=== PATIENT | male | born 1960 | race Caucasian/White ===

== ENCOUNTER → 2016-12-08 | Outpatient (CLI) | payer OTHER ==
[~2016-12-08] MED LIST: ATOR-26 PO; LISI20TA55 PO
[2016-12-08 13:24] LABS: ESTIMATED AVERAGE GLUCOSE 103 mg/dl; HA1C FLAG Normal (Normal)
== END | disposition home or self-care (01) ==
LOC: C.LABBFT 07:47
PROVIDERS: ATTEND Internal Medicine
DX: R73.01 Impaired fasting glucose (principal)

== ENCOUNTER 2017-12-11 07:04 | Emergency (ER) | payer OTHER ==
[~2017-12-11] VITALS: Ht 167.6 cm; Wt 77.8 kg
[2017-12-11 07:11] VITALS: TEMP 36.7; Ht 167.6 cm; Wt 77.8 kg
[2017-12-11] MEDS ORDERED: PROPARACAINE HCL 0.5% OP SOLN 15 ML BTL OP STA (07:21)
--- NOTE | 2017-12-11 08:10 | EMERGENCY ROOM VISIT NOTE ---
History First contact with patient: 07:18 Chief Complaint: EYE ASSESSMENT Stated Complaint: RIGHT EYE, SOMETHING IN IT/WC History of Present Illness The patient is a 57 year old male who presents to the Emergency Room via private vehicle with complaints of "right eye, something in it". The patient states that yesterday while working at his place of employment there was an exhaust system he was working on that was above his head. He believes that something may have gone into his right eye because he notes that there was a jagged sensation and now when he woke up it is much worse. It is localized to the right eye. His tetanus is up-to-date. He believes that this occurred yesterday around 10 AM. He states that he has had a history of foreign body/ metal in the eye before. Review of Systems A complete 6-point Review of Systems was discussed with the patient, with pertinent positives and negatives listed in the History of Present Illness. All remaining Review of Systems questions can be considered negative unless otherwise specified. Past Medical/Surgical History Medical Problems: (1) Hyperlipidemia (2) Hypertension Social History Smoking Status: Former Smoker Occupation Status: employed Current/Historical Medications Scheduled Atorvastatin (Lipitor), 80 MG PO QPM Lisinopril/Hctz (Prinzide 20-25MG), 1 TAB PO DAILY Physical Exam Vital Signs Date Time Temp Pulse Resp B/P (MAP) Pulse Ox O2 Delivery O2 Flow Rate FiO2 12/11/17 08:40 72 18 141/87 97 Room Air 12/11/17 07:11 36.7 79 18 151/75 95 Room Air Right Eye Acuity: 20/70 PT DOES NOT USE CORRECTION Left Eye Acuity: PT. STATED HE COULD NOT SEE EYE CHART, "EVERYTHING IS BLURRY" Physical Exam VITAL SIGNS - Vital signs and nursing notes were reviewed. Stable. GENERAL - 57-year-old male appearing his stated age who is in no acute distress. Communicates well with provider and answers questions appropriately. SKIN - Without rashes. No meningeal or petechial rash. The skin around the right eye is unremarkable. HEAD - NC/AT. EYES - PERRL with EOMI bilaterally. Sclera anicteric. On visual exam there is evidence of a small punctate black metallic-like jocelyne at the medial aspect of the patient's right cornea between the limbus and the central portion of the iris. EARS - No deformities of external structures noted on gross examination bilaterally. NOSE - Midline and without cyanosis. No epistaxis or purulent drainage noted. Slit Lamp Examination was performed of the R eye(s). Alcaine drops were applied to the affected eye(s) for proper anesthetization. The affected eye(s) were stained with Fluorescein stain to precipitate adequate visualization of any conjunctival/scleral excoriations or ulcers. The patient's face was comfortably rested on the chin guard of the slit lamp apparatus. The lights were dimmed and the affected eye(s) were thoroughly examined under microscopy using the blue light. Punctate uptake was present at the right medial portion of the eye with evidence of superficial abrasion as well as a small punctate area with the metallic area was prior to removal. Additionally, the eye(s) were examined under microscopy using the regular light. Close examination revealed negative Yonatan sign with small rust ring. Patient tolerated the procedure well and no complications were met. Medical Decision & Procedures Medications Administered Medications (Trade) Dose Ordered Sig/Miladis Route Start Time Stop Time Status Last Admin Dose Admin Proparacaine HCl (Alcaine 0.5% Oph Soln) 2 drops NOW STAT OP 12/11/17 07:21 12/11/17 07:22 DC 12/11/17 07:43 2 DROPS Ciprofloxacin HCl (Ciprofloxacin 0.3% Op Soln) 1 drops NOW STAT OPR 12/11/17 08:24 12/11/17 08:25 DC 12/11/17 08:48 1 DROPS Procedure Benefit versus risk of removing foreign body from the patient's eye was discussed. Patient was positioned, Alcaine was utilized to anesthetize the eye , and then I utilized a moistened sterile cotton swab to gently remove the metal foreign body. Care was taken so as to not cause further damage. Patient tolerated this well. Removal was verified with slit-lamp exam. There is perhaps a small, extremely tiny small jocelyne it remains however this is favored to be continuance of the rust ring. There are small superficial corneal abrasions noted around this region. Medical Decision /Patient was seen and evaluated as above B3. Review was performed of nursing notes and vital signs. After obtaining a thorough history and physical examination the above work up was performed. He presents to us today with right eye pain. There is visible foreign body on exam. Negative Yonatan sign. Benefit versus risk of removing this was discussed. This was removed easily with a cotton swab that was moistened with Alcaine. There was a rust ring. I then spoke with Dr. Lindsey, of ophthalmology who will see the patient at 2:30 PM later today. He will be discharged home with Ciloxan. He is to return with worsening. He declined pain medication. The patient was educated upon management, had questions answered prior to discharge, and was discharged home in good condition. In the evaluation and treatment of this patient, the following differential diagnoses were considered: Corneal Abrasion, Conjunctivitis, Eye Contusion, Globe Injury, Orbital Floor Injury (Blowout Fracture), Corneal Ulcer, Keratitis , Herpes Zoster Opthalmic, Blepharitis, Orbital Cellulitis, Iritis, Scleritis/ Episcleritis, Uveitis, Temporal Arteritis, Subconjunctival Hemorrhage. Impression Primary Impression: Eye foreign body Departure Information Dispostion Home / Self-Care Condition GOOD Referrals Alberto Ferguson M.D. (PCP) Skyler Leblanc M.D. Patient Instructions My [facility] Additional Instructions You have been treated in the Emergency Department for R eye pain. You were prescribed ciloxan to be used every 6 hours. This is an antibiotic. Stop this medication and contact a medical provider if you were to develop any significant adverse side effects including: wheezing, shortness of breath, passing out, vomiting, or a diffuse rash. Always take antibiotics as directed and COMPLETE the ENTIRE course regardless of the improvement of your symptoms. For pain control, you can use the following henu-yrn-eywvfha medicines: - Regular strength (325mg/tab) Tylenol (acetaminophen) 2 tabs every 4-6 hours as needed. Do not exceed 12 tablets in a 24 hour period. Avoid taking more than 3 grams (3000 mg) of Tylenol per day. This includes any other sources of acetaminophen you may take on a regular basis. - Regular strength (200 mg/tab) Advil (ibuprofen) 1-2 tabs every 4-6 hours as needed. Do not exceed a dose of 3200 mg per day. Avoid rubbing your eyes for the next few days as this can cause irritation. Wear sunglasses when outside to help minimize your pain. You should relax in a quiet, dark room to help minimize your symptoms. You should seek evaluation of your right eye by an after school caregiver following your visit to the Emergency Department. They will see you at 2:30 PM today. This is at the office listed above. Return to the emergency department if you develop the following symptoms despite treatment course outlined above: blurry vision, loss of vision, fever, intractable pain, increased redness, swelling, or purulent discharge. Problem Qualifiers Primary Impression: Eye foreign body Laterality: right
[2017-12-11] MEDS ORDERED: CIPROFLOXACIN HCL 0.3% OP SOLN 2.5 ML BTL OPR STA (08:24)
[2017-12-11 08:40] VITALS: BP 141/87; PULSE 72; O2SAT 97
== END 2017-12-11 08:49 | disposition home or self-care (01) ==
LOC: C.EDB 07:06
DX: T15.01XA Foreign body in cornea, right eye, initial encounter (principal); X58.XXXA Exposure to other specified factors, initial encounter; Y92.89 Other specified places as the place of occurrence of the external cause; Y99.0 Civilian activity done for income or pay; I10 Essential (primary) hypertension; E78.5 Hyperlipidemia, unspecified; Z79.899 Other long term (current) drug therapy; Z87.891 Personal history of nicotine dependence

== ENCOUNTER 2023-10-02 09:29 | Inpatient (IN) ==
--- NOTE | 2023-10-02 10:07 | Emergency Department Note ---
History of Present Illness General Chief complaint: Illness Stated complaint: VOMIING, DIARRHEA, CHEST PAINS, FALLING Time Seen by Provider: 10/02/23 09:50 History of Present Illness 63-year-old male presents emergency department with a 3-day history of nausea vomiting diarrhea and generalized weakness. Patient of note was seen by his primary care physician yesterday for hip pain. She did perform a nasal swab in the office and reportedly was negative for COVID and flu. Patient states that he had chest pain earlier today. Nonradiating there is no shortness of breath. Patient states anytime he tries to eat or drink he has diarrhea. Nonbloody. Patient states generalized weakness currently. Patient denies any specific abdominal pain. Family at bedside states that he is extremely weak. Patient states he has not urinated as he has not been producing urine for the past 3 days. Patient also states that he was prescribed Zofran which seems to be helping.; According to family at bedside reportedly had 2 episodes of falling last night did not hit his head but fell due to weakness Home Medications Medication Instructions Recorded Confirmed Type atorvastatin 80 mg tablet 80 mg PO HS #90 tabs 06/12/23 10/02/23 Rx lisinopril 20 1 tab PO BID #180 tabs 06/12/23 10/02/23 Rx mg-hydrochlorothiazide 25 mg tablet ondansetron HCl 8 mg tablet 8 mg PO Q8H PRN nausea and 10/01/23 10/02/23 Rx vomiting #20 tabs Allergies Allergy/AdvReac Type Severity Reaction Status Date / Time No Known Allergies Allergy Verified 10/01/23 06:55 Past Med/Surg History Medical History [place] (hard of hearing) Hyperlipidemia HTN (hypertension) Surgical History (Updated 06/12/23 @ 21:21 by Alberto Ferguson MD) Hx of arthroscopy of right knee History of colonoscopy History of umbilical hernia repair History of knee surgery History of inguinal hernia repair Rx1, Lx1 Family History (Updated 06/12/23 @ 11:55 by Alberto Ferguson MD) Father Hypertension Prostate cancer Mother Heart disease Brother Healthy adult Other Colonic polyp Denies family history of Breast cancer Social History Smoking Status: Never smoker Tobacco Type: Smokeless Tobacco (Dip or Chew) packs per day: 1; Second Hand Exposure: No; Do You Dip or Chew Tobacco: Yes (1 can per day/advised npo); Hx Alcohol Use: Yes Alcohol type: beer Alcohol type Comment: December 2 8 oz beers per day. Hx Substance Use: No Preferred Language: Belarusian Communication Ability: Effective Hearing Ability: Hard of Hearing Beauty Advisor Required: No Beliefs That Will Affect Care: None marital status: Single Current Living Situation: Alone current occupational status: employed current occupation: [employer] (not a family business) Feels Safe at Home: Yes Dental Care, Regularly: Yes Physical Activity Frequency: Does not Exercise Seatbelt Use: always Sunscreen Use: No Assistive Devices: None Review of Systems A total of 10 systems reviewed and were otherwise negative Constitutional: + weakness Gastrointestinal: + diarrhea/loose stools Physical Exam Vital Signs Vital Signs - 24 hr 10/02/23 09:40 10/02/23 09:55 10/02/23 09:57 Temperature 35.5 C L Temperature Source Temporal Artery Scan Pulse Rate 101 H 77 Pulse Rate [Apical] 74 Pulse Rhythm [Apical] Regular Pulse Strength [Apical] Normal Respiratory Rate 16 16 Respiratory Effort / Characteristics Non-Labored Spontaneous Non-Labored Respiratory Depth Normal Normal Respiratory Pattern Regular Blood Pressure 70/41 L Blood Pressure [Left Arm] 73/45 L Blood Pressure Mean 50 Blood Pressure Mean [Left Arm] 54 Blood Pressure Position [Left Arm] Sitting Pulse Oximetry 96 Oxygen Delivery Method Room Air Sepsis Recent Fever Within 48 Hours No Sepsis New/Unexplained Change in Mental Status Yes Sepsis Action Taken by Nursing No Action Required 10/02/23 10:09 10/02/23 10:15 10/02/23 11:15 Temperature Temperature Source Pulse Rate Pulse Rate [Apical] 72 70 78 Pulse Rhythm [Apical] Regular Regular Regular Pulse Strength [Apical] Normal Normal Respiratory Rate 18 18 18 Respiratory Effort / Characteristics Non-Labored Spontaneous Non-Labored Non-Labored Spontaneous Respiratory Depth Normal Normal Normal Respiratory Pattern Regular Regular Blood Pressure Blood Pressure [Left Arm] 78/50 L 81/51 L 137/80 Blood Pressure Mean Blood Pressure Mean [Left Arm] 59 61 99 Blood Pressure Position [Left Arm] Semi-fowlers Sitting Pulse Oximetry 95 96 95 Oxygen Delivery Method Room Air Room Air Room Air Sepsis Recent Fever Within 48 Hours Sepsis New/Unexplained Change in Mental Status Sepsis Action Taken by Nursing GENERAL: Patient is awake alert in no acute distress patient is resting comfortably and showing no signs of anxiety EYES: The conjunctivae are clear. The pupils are round and reactive. EARS, NOSE, MOUTH AND THROAT: The nose is without any evidence of any deformity. Mucous membranes are moist. Tongue is midline. NECK: The neck is nontender and supple. No meningismus RESPIRATORY: Normal respiratory effort is noted there is no evidence of wheezing rhonchi or rales CARDIOVASCULAR: Regular rate and rhythm noted there no murmurs rubs or gallops normal S1 normal S2. GASTROINTESTINAL: The abdomen is soft. Abdomen is nontender. PELVIS: The Pelvis is stable. No tenderness to palpation is noted. BACK: No midline tenderness or or step-off noted range of motion in flexion extension as well as rotation no signs of muscle spasm noted MUSCULOSKELETAL/EXTREMITIES: There is no evidence of gross deformity full range of motion is noted in the hips and shoulders. SKIN: There is no obvious evidence of any rash. There are no petechiae, pallor or cyanosis noted. NEUROLOGIC: Patient is awake alert and oriented x3 strength is symmetric Course Reevaluation(s) Reevaluation #1: Patient was started on 2 L of IV saline, his blood pressure is greater than 100 systolic. Time: 11:36 Consultations Consultation #1: [facility], he will also get a CT abdomen pelvis Time: 11:36 Administered Medications Sodium Chloride (Nss) 1,000 mls @ 999 mls/hr IV .Q1H1M KATELYN Stop: 10/02/23 12:00 Last Admin: 10/02/23 11:16 Dose: 999 mls/hr Documented By: Infusion: 10/02/23 11:12 Dose: Infused Documented By: Admin: 10/02/23 10:11 Dose: 999 mls/hr Documented By: [facility] Critical Care Time Critical Care Time: Yes Total Critical Care Time: 45 I have personally spent greater than 45 minutes of critical care time in the direct management of this patient. This includes bedside care, interpretation of diagnostic studies, and testing, discussion with consultants, patient, and family members, and other required patient management activities. These minutes are in excess of all separately billable procedures. Medical Decision Making Medical Records Attestation: I reviewed the patient's medical records. Home Medications Current Medication List: was personally reviewed by me Laboratory Data Attestation: I reviewed the patient's lab results. Patient's lab work interpreted by me patient has a mild leukocytosis, patient has an elevated creatinine in comparison to a baseline of 0.5 in the past which is indicative of acute renal failure 10/02/23 10:03 10/02/23 10:03 Lab Results 10/02/23 10/02/23 Range/Units 10:01 10:03 WBC 11.14 H (4.8-10.8) K/ul RBC 5.09 (4.70-6.10) M/uL Hgb 15.1 (14.0-18.0) g/dl Hct 43.6 (42.0-52.0) % MCV 85.7 (80.0-100.0) fL MCH 29.7 (25.0-34.0) pg MCHC 34.6 (32.0-36.0) g/dL RDW Std Deviation 42.7 (36.4-46.3) fL RDW Coeff of Elena 13.6 (11.5-14.5) % Plt Count 329 (130-400) K/uL MPV 8.4 L (9.4-12.4) fL Immature Gran % (Auto) 0.5 % Neut % (Auto) 77.8 % Lymph % (Auto) 10.3 % [place] % (Auto) 11.0 % Eos % (Auto) 0.1 % Baso % (Auto) 0.3 % Neut # (Auto) 8.67 H (1.40-6.50) K/uL Lymph # (Auto) 1.15 L (1.20-3.40) K/uL [place] # (Auto) 1.22 H (0.11-0.59) K/uL Eos # (Auto) 0.01 (0.00-0.50) K/uL Baso # (Auto) 0.03 (0.00-0.20) K/uL Immature Gran # (Auto) 0.06 (0.01-0.20) K/uL PT 10.1 (9.0-12.0) Seconds INR 0.9 (0.9-1.1) APTT 28 (21-31) Seconds PTT Ratio 1.0 Sodium 127 L (136-145) mmol/L Potassium 4.6 (3.5-5.1) mmol/L Chloride 89 L (98-107) mmol/L Carbon Dioxide 12 L (21-32) mmol/L Anion Gap 26 H (3-11) BUN 99 H (6-23) mg/dl Creatinine 8.86 H* (0.6-1.4) mg/dl Est Cr Clr Drug Dosing 8.0 ml/min Est GFR ( Amer) 6.5 ml/min Est GFR (Non-Af Amer) 5.6 ml/min BUN/Creatinine Ratio 11.2 (10-20) Glucose 134 H (70-99(Fasting)) mg/dl Lactate 1.5 (0.4-2.0) mmol/L Calcium 8.5 L (8.6-10.3) mg/dl Magnesium 2.5 H (1.7-2.4) mg/dl Total Bilirubin 0.6 (0.2-1.0) mg/dl Direct Bilirubin 0.1 (0-0.2) mg/dl AST 16 (13-39) U/L ALT 29 (7-52) U/L Alkaline Phosphatase 83 (34-104) U/L Troponin I High Sens 7.1 (0-20) pg/ml Total Protein 8.1 (6.0-8.3) gm/dl Albumin 4.5 (3.4-5.0) gm/dl Procalcitonin 1.93 H (0-0.5) ng/ml SARS-CoV-2 (PCR) NEGATIVE (Negative) Influenza Type A (PCR) Negative (Neg) Influenza Type B (PCR) Negative (Neg) RSV (RT-PCR) Negative (Neg) Imaging Data Attestation: I personally reviewed and interpreted this imaging study as follows: My Impression: Chest x-ray interpreted by me negative for infiltrate Radiologist's Impression: Chest X-Ray 10/02/23 09:50 XR chest 1V portable HISTORY: 63 years-old Male Sepsis acute sepsis COMPARISON: None TECHNIQUE: AP view of the chest FINDINGS: Cardiac mediastinal and hilar silhouettes are within normal limits. No pneumothorax, pleural effusion or airspace consolidation. Bones appear grossly intact. IMPRESSION: No acute process. ACT 112: Negative or not required by law. The above report was generated using voice recognition software. It may contain grammatical, syntax or spelling errors. Electronically signed by: Wyatt Landin M.D. 10/02/2023 10:30 AM ECG Data Attestation: I personally reviewed and interpreted this ECG as follows: Additional Comments: EKG interpreted by me normal sinus rhythm rate of 74, normal intervals, normal axis, no obvious ST segment elevation or depression Telemetry was interpreted by me as normal sinus rhythm rate of 74 MDM Narrative Medical decision making differential diagnosis includes sepsis, urinary tract infection, dehydration, electrolyte abnormality, viral syndrome Plan is to check labs, patient will receive a 2 L fluid bolus, check sepsis protocol Family at bedside is provided me history regarding the patient has a history of hypertension, hard of hearing and the fact that he has never had a septic event Patient was found to have acute renal failure with a creatinine that was over 8 with a normal baseline creatinine 1.5. Patient is on lisinopril, patient has had diarrhea however has not given us a sample in the emergency department. Patient is likely extremely dehydrated, a Schwartz catheter was placed. Patient has no urine output. Patient is an uric. Patient will be admitted for further treatment patient responded nicely to 2 L of saline. Currently and antibiotics have been held and might be chosen by the admitting team. Patient's procalcitonin is up. The source of potential infection is unknown at this time. Patient did improve greatly after IV fluids and his blood pressure at the time of admission was 136 systolic. Impression & Plan Acute renal failure, Acute dehydration, Diarrhea Discharge Plan Visit Data Chief Complaint: Illness Stated Complaint: VOMIING, DIARRHEA, CHEST PAINS, FALLING ED Provider: Torito Flowers Discharge Problem: Acute renal failure, Acute dehydration, Diarrhea Patient Disposition: Admitted As Inpatient Forms Stand Alone Forms: My [employer] Prescriptions Prescriptions: No Action atorvastatin 80 mg tablet 80 mg PO HS Qty: 90 3RF lisinopril-hydrochlorothiazide 20-25 mg tablet 1 tab PO BID Qty: 180 3RF Rx Instructions: TAKE 1 TABLET BY MOUTH TWICE DAILY ondansetron HCl 8 mg tablet 8 mg PO Q8H PRN (Reason: nausea and vomiting) Qty: 20 0RF Referrals Referrals: Alberto Ferguson MD [Primary Care Provider] -
[2023-10-02] MEDS: SODIUM CHLORIDE 0.9% 1,000 ML IV SCH (10:11)
[2023-10-02 10:30] LABS: Basophils # (auto) 0.03 K/uL (0.00-0.20); Basophils % (auto) 0.3 %; Eosinophils # (auto) 0.01 K/uL (0.00-0.50); Eosinophils % (auto) 0.1 %; Hematocrit (blood only) 43.6 % (42.0-52.0); Hemoglobin 15.1 g/dl (14.0-18.0); Immature Granulocytes # (auto) 0.06 K/uL (0.01-0.20); Immature Granulocytes % (auto) 0.5 %; Lymphocytes # (auto) 1.15 K/uL (1.20-3.40); Lymphocytes % (auto) 10.3 %; Mean Corpuscular Hemoglobin 29.7 pg (25.0-34.0); Mean Corpuscular Hgb Conc 34.6 g/dL (32.0-36.0); Mean Corpuscular Volume 85.7 fL (80.0-100.0); Mean Platelet Volume 8.4 fL (9.4-12.4); Monocytes # (auto) 1.22 K/uL (0.11-0.59); Neutrophils # (auto) 8.67 K/uL (1.40-6.50); Neutrophils % (auto) 77.8 %; Platelet Count 329 K/uL (130-400); RDW Coefficient of Variation 13.6 % (11.5-14.5); RDW Standard Deviation 42.7 fL (36.4-46.3); Red Blood Count 5.09 M/uL (4.70-6.10); White Blood Count 11.14 K/ul (4.8-10.8)
--- NOTE | 2023-10-02 10:31 | XRay Report ---
XR chest 1V portable HISTORY: 63 years-old Male Sepsis acute sepsis COMPARISON: None TECHNIQUE: AP view of the chest FINDINGS: Cardiac mediastinal and hilar silhouettes are within normal limits. No pneumothorax, pleural effusion or airspace consolidation. Bones appear grossly intact. IMPRESSION: No acute process. ACT 112: Negative or not required by law. The above report was generated using voice recognition software. It may contain grammatical, syntax o r spelling errors. Electronically signed by: Wyatt Landin M.D. 10/02/2023 10:30 AM
[2023-10-02 10:51] LABS: INR 0.9 (0.9-1.1); Partial Thromboplastin Time 28 Seconds (21-31); Prothrombin Time 10.1 Seconds (9.0-12.0)
[2023-10-02 10:53] LABS: Albumin Level 4.5 gm/dl (3.4-5.0); BUN Creatinine Ratio 11.2 (10-20); Bilirubin Direct 0.1 mg/dl (0-0.2); Bilirubin,Total 0.6 mg/dl (0.2-1.0); Calcium 8.5 mg/dl (8.6-10.3); Est GFR (African American) 6.5 ml/min; Est GFR (Non-African American) 5.6 ml/min; Magnesium 2.5 mg/dl (1.7-2.4); Potassium 4.6 mmol/L (3.5-5.1); Total Protein 8.1 gm/dl (6.0-8.3); Troponin I High Sensitivity 7.1 pg/ml (0-20)
[2023-10-02 10:58] LABS: Influenza A virus by PCR Negative (Neg); Influenza B virus by PCR Negative (Neg); RSV by PCR Negative (Neg); SARS CoV2 RNA(COVID-19) Ceph NEGATIVE (Negative)
--- NOTE | 2023-10-02 11:04 | Electrocardiogram Report ---
Test Reason : Blood Pressure : / mmHG Vent. Rate : 074 BPM Atrial Rate : 074 BPM P-R Int : 160 ms QRS Dur : 096 ms QT Int : 384 ms P-R-T Axes : 076 074 062 degrees QTc Int : 426 ms Normal sinus rhythm Normal ECG When compared with ECG of 21-MAY-2015 07:15, No significant change was found Confirmed by Erick Moody ([id number]) on 10/02/2023 11:04:40 AM Referred By: REFERRED SELF Confirmed By:Erick Moody
--- NOTE | 2023-10-02 11:49 | History & Physical Report ---
Date of Service October 02, 2023 Assessment & Plan (1) Acute renal failure: Plan: -Admit to the PCU on tele -Currently hemodynamically stable and non-toxic appearing -Presented to the ED for ongoing nausea, vomiting, and non-bloody diarrhea since 09/28/23 -Patient reports that he has not voided since 09/28, denied having the urge to go or increased suprapubic pain since 09/28 -Noted to have a Cr of 8.86 (baseline is 0.6) and BUN of 99 -CT of the abd/pelvis wo con ordered prior to admission is negative for signs of obstruction, does note Mild bilateral perinephric edema/fat stranding which could represent pyelonephritis -Repeat BMP, mag, phos on admission show a slight improvement of Cr to 8.0, BUN of 97, sodium of 128, AG of 20, Bicarb of 10 -Will obtain UA shortly with urine sodium and osmolality -Suspect his elevated phos is due to volume contraction on arrival, will wait to treat while continuing IV fluids and will follow on repeat q4h labs -Suspect his renal failure is due to multiple etiologies including severe dehydration from gastroenteritis and continued Lisinopril-HCTZ use -Cannot rule out intrinsic etiology with continued lisinopril-HCTZ use and possible infection, UA is in process -Continue with hughes cath in place for now, monitor intake/output q6h -Will start maintenance Plasmalyte at 100 mL/hr x 2 bags for now and will follow up with urine output q6h -Nephrology consult placed -Avoid Nephrotoxic agents -Hold chemical DVT PPX for now, BL SCD's -Clear liquid diet -q4h BMP, mag, phos, VBG -AM CBC with diff (2) High anion gap metabolic acidosis: Plan: -Patient presented with an AG of 36, bicarb of 12 -Lactate was WNL at 1.5 -ABG ordered on admission shows a pH of 7.23 with pCO2 of 24 and pO2 of 121 which shows incomplete respiratory compensation -Alcohol level is negative, salicylate level in process, patient denies taking any recent aspirin, NSAID's, or non-pharmacologic substances at home -Repeat BMP, mag, phos, shows slight improvement in renal function with AG improving to 20 but bicarb down to 10 -Suspect the metabolic acidosis with incomplete respiratory compensation is being driven by his severe dehydration and uremia >Suspect the drop in his bicarb from 12 --> 10 is likely due to the 2L NSS given in the ED -He is clinically stable at this time -Will start Plasmalyte at 100 mL/hr x 2 bags on admission for ongoing hydration -Will monitor q4h VBG to ensure he continues to correct (3) Acute dehydration: Plan: -Patient appears significantly dehydrated on exam with labs consistent with his presentation -Suspect this is due to his gastroenteritis with continued use of his linopril- HCTZ -Continue IV hydration for now, will start clear liquid diet -Monitor volume status moving forward (4) Hyponatremia: Plan: -Initial sodium of 127 on arrival --> 128 after receiving 2L NSS in the ED -Suspect that his hyponatremia is being causing by significant dehydration and continued diuretic use -Will continue IV hydration at this time -Will obtain serum osmolality, urine sodium, urine osmolality for further evaluation -Monitor q4h BMP, mag, phos -Nephrology consult placed (5) Diarrhea: Plan: -Suspect a gastroenteritis at this time, cannot rule out C. diff with the ongoing episodes of diarrhea -Denies recent abx use -CT of the abd/pelvis wo con is negative for obstruction with signs consistent with possible gastroenteritis -Will obtain stool studies and C. diff PCR but will hold abx for now as he has a mild leukocytosis on arrival and has been stable since initial fluid resuscitation in the ED -Will hold antidiarrheals for now until stool study results are back (6) Nausea and vomiting: Plan: -Suspect this is due to his gastroenteritis and possible gastritis/esophagitis -CT of the abd/pelvis wo con is negative for obstruction -Will give 20 mg IV famotidine now and continue daily until he can tolerate consistent PO Intake -Will order prn zofran for nausea/vomiting (7) Hypertension: Plan: -Presented in hypotension with systolic BP in the 70's -Has been stable since fluid resuscitation in the ED -Hold antihypertensives with stable BP and current renal failure Plan The patient was discussed with Dr. Watkins at the time of the admission History of Present Illness Chief Complaint: Vomiting, diarrhea, chest pain, falls Primary Care Provider: Alberto Ferguson MD Rogelio is a 63 year old male with a PMH significant for HTN, hyperlipidemia who presented to the [facility] ED on 10/02/23 with complaints of recurrent nausea, vomiting, diarrhea, chest discomfort, and multiple falls since 09/28/83. On arrival he was noted to be hypotensive at 70/41, tachycardic with HR of 101, but otherwise stable. Labs were significant for a leukocytosis of 11 with neutrophil predominance of 8, lymphocyte count of 1.15, Cr of 8.86 (baseline is near 0.60), BUN of 99, AG of 26 with bicarb of 12, chloride of 89, sodium of 127, mag of 2.5, lactate WNL, procal of 1.93, and covid 19/influenza/RSV negative. Chest xray was read as negative for acute findings. The patient was initially given 2L NSS bolus on arrival with improvement in his BP to 137/80. Prior to admission a hughes catheter was placed in the ED. A CT of the abd/pelvis wo con was obtained by the medicine team prior to admission and was read as "1. No bowel wall thickening or obstruction. 2. Fluid-filled nondilated loops of large and small bowel seen throughout the abdomen. This may represent a gastroenteritis/diarrhea l illness. 3. Right-sided nephrolithiasis. No ureteral stones. No hydronephrosis. 4. Mild bilateral perinephric edema/fat stranding most pronounced on the left. The kidneys appear slightly enlarged. This could be due to acute on chronic renal insufficiency or possibly a pyelonephritis. Recommend correlation with urinalysis.5. Additional findings as described above. ". At the time of the exam the patient was sitting in bed in no acute distress with his daughter sitting bedside. He states that he started to develop nausea, non-bloody emesis, and multiple (more than 4 daily) episodes of non-bloody diarrhea starting on 09/28/23. When asked, he confirms that he continued to take his daily medications which includes lisinopril-HCTZ. He was seen at his PCP's office on 10/01 and was prescribed prn Zofran, which he has been using. He states that he has not voided on his own since 09/28/23, he denies feeling as though he has had to void since his decreased urine output started. He experienced two ep isodes of lightheadedness/dizziness since last night. These occurred while he was walking to his kitchen to get zofran. He denies losing consciousness or hitting his head during the falls and states that he has not had recurrence of the symptoms since arriving to the ED. He has had approximately 3 episodes of intermittent episodes of substernal chest pain. He denies radiation of the pain and denies recurrence of the pain since arrival to the ED. When asked, he denies taking any aspirin, Aleve, Motrin, Ibuprofen, tylneol, alcohol, or other substances prior to or since his symptoms started. He denies recent antibiotic use. He denies recent fever, chills, cough, hemoptysis, hematochezia, abd pain, dysuria, hematuria, melena, bloody stool, LE swelling. We discussed code status, he wishes to be a full code and would want his daughter to make medical decisions for him if he cannot make them himself. Please refer to Dr. Watkins's attestation for any changes to the treatment plan Allergies Allergy/AdvReac Type Severity Reaction Status Date / Time No Known Allergies Allergy Verified 10/01/23 06:55 Home Medications Medication Instructions Recorded Confirmed Type atorvastatin 80 mg tablet 80 mg PO HS #90 tabs 06/12/23 10/02/23 Rx lisinopril 20 1 tab PO BID #180 tabs 06/12/23 10/02/23 Rx mg-hydrochlorothiazide 25 mg tablet ondansetron HCl 8 mg tablet 8 mg PO Q8H PRN nausea and 10/01/23 10/02/23 Rx vomiting #20 tabs Past Med/Surg History Medical History [place] (hard of hearing) Hyperlipidemia HTN (hypertension) Surgical History (Updated 06/12/23 @ 21:21 by Alberto Ferguson MD) Hx of arthroscopy of right knee History of colonoscopy History of umbilical hernia repair History of knee surgery History of inguinal hernia repair Rx1, Lx1 Family History (Updated 06/12/23 @ 11:55 by Alberto Ferguson MD) Father Hypertension Prostate cancer Mother Heart disease Brother Healthy adult Other Colonic polyp Denies family history of Breast cancer Social History Smoking Status: Never smoker Tobacco Type: Smokeless Tobacco (Dip or Chew) packs per day: 1; Second Hand Exposure: No; Do You Dip or Chew Tobacco: Yes (1 can per day/advised npo); Hx Alcohol Use: Yes Alcohol type: beer Alcohol type Comment: December 2 8 oz beers per day. Hx Substance Use: No Preferred Language: Urdu Communication Ability: Effective Hearing Ability: Hard of Hearing Cash Applications Clerk Required: No Beliefs That Will Affect Care: None marital status: Single Current Living Situation: Alone current occupational status: employed current occupation: [employer] (not a family business) Feels Safe at Home: Yes Dental Care, Regularly: Yes Physical Activity Frequency: Does not Exercise Seatbelt Use: always Sunscreen Use: No Assistive Devices: None Physical Exam Physical Exam: Physical Exam: General: In no acute distress, stated age, well-nourished, non-toxic appearing HEENT: Normocephalic, atraumatic, no scleral icterus, pupils around round, symmetrical, and reactive to light, dry mucus membranes, trachea midline, no thyromegaly Chest/Pulm: No respiratory distress, symmetrical chest expansion, clear breath sounds throughout Cardiac: RRR, no murmurs noted Abdomen: Negative for ascites and bruising, hyperactive bowel sounds, soft, non-tender to palpation throughout : Hughes cath is in place, currently drainage approximately 100 cc of cloudy, yellow urine Musculoskeletal: Symmetrical and without signs of acute trauma, upper and lower extremities with full ROM, no atrophy, spasticity, or flaccidity Extremities: Radial, dorsalis pedis, and posterior tibial pulses are intact and symmetrical, no edema noted in the BL LE's Skin: Warm, dry, no rashes , lesions, or scars noted Neuro: Alert and oriented to person, place, month, year, and president, no focal defects, CN II-XII tested and intact, finger to nose test negative, no tremors noted Psych: No acute distress, calm and cooperative during the exam Results & Data Results & Data Vital Signs (Past 12 Hours) Vital Signs Temp Pulse Pulse Resp BP BP Pulse Ox 10/02/23 11:15 78 18 137/80 95 10/02/23 10:15 70 18 81/51 L 96 10/02/23 10:09 72 18 78/50 L 95 10/02/23 09:57 77 10/02/23 09:55 74 16 73/45 L 96 10/02/23 09:40 35.5 C L 101 H 16 70/41 L O2 Del Method 10/02/23 11:15 Room Air 10/02/23 10:15 Room Air 10/02/23 10:09 Room Air 10/02/23 09:57 10/02/23 09:55 Room Air 10/02/23 09:40 Laboratory Results Abnormal lab results 10/02/23 Range/Units 10:03 WBC 11.14 H (4.8-10.8) K/ul MPV 8.4 L (9.4-12.4) fL Neut # (Auto) 8.67 H (1.40-6.50) K/uL Lymph # (Auto) 1.15 L (1.20-3.40) K/uL Duval # (Auto) 1.22 H (0.11-0.59) K/uL Sodium 127 L (136-145) mmol/L Chloride 89 L (98-107) mmol/L Carbon Dioxide 12 L (21-32) mmol/L Anion Gap 26 H (3-11) BUN 99 H (6-23) mg/dl Creatinine 8.86 H* (0.6-1.4) mg/dl Glucose 134 H (70-99(Fasting)) mg/dl Calcium 8.5 L (8.6-10.3) mg/dl Magnesium 2.5 H (1.7-2.4) mg/dl Procalcitonin 1.93 H (0-0.5) ng/ml ECG Additional Comments: Normal sinus rhythm Normal ECG When compared with ECG of 21-MAY-2015 07:15, No significant change was found Confirmed by Erick Moody ([id number]) on 10/02/2023 11:04:40 AM Code Status & VTE Plan Code Status Full code VTE Prophylaxis Plan VTE Prophylaxis will be ordered: Yes Supervising Physician Co-Signing Physician Notes Patient seen and examined, chart reviewed, case discussed with Alexsander Downing PA-C and I agree with the assessment and plan as above except as otherwise noted Labs and images reviewed Rogelio is a 63-year-old male with history of BPH/LUTS, hypertension, hyperlipidemia who presents with a leukocytosis, metabolic acidosis, and acute renal failure with increased anion gap. BSG is 109. Hypotensive on arrival with rapid normalization of blood pressure after 2 L of crystalloid expansion with saline. Potassium is 4.3 and patient has been switched to balanced crystalloid resuscitation. CT-A/P: diarrheal/GI illness. ?renal insufficiency vs pyeleno. UA pending. PCT is increased. 2 episodes of presycnope without syncope/head injury which prompted ER arrive. Few intermittent episodes of chest discomfort none present on admit with normal trop and no ischemic EKG changes. ARF - Prerenal with severe volume depletion, improving. - No signs of obstructive uropathy - DDx includes infectious/pyelo, with ?pyelo vs chronic insufficiency however pt is not having sx of UTI. With poor appearance and leukocytosis will defer pending UA analysis, hwoever pt has no sx of a UTI and no CVA tenderness and no other infectious sx ?reaction and from hypotension. - diuretics/nephrotoxins held - Continue plasmalyte. BMP q4h, VGB a4h at this time. Ur/Se osmoles pending, no etoh use and etoh was negative. Avoid NSS due to worsening of acidemia. Bicarb not indicated at this time. - Nonanuric Diarrheal inllness - Stool PCR pending PG Care Time/CCT Total # of Minutes Spent Total Time Spent with Patient: Total time spent is greater than 50% in coordination of care (as documented) at patient's floor/unit and/or counseling patient: [place] [address] INT INP/OBS CARE 3/75MIN Patient Type Established History Comprehensive Exam Comprehensive Medical Decision Making High Complexity Diagnoses Acute renal failure N17.9 High anion gap metabolic acidosis E87.29 Acute dehydration E86.0 Hyponatremia E87.1 Diarrhea R19.7 Nausea and vomiting R11.2 Hypertension I10
[2023-10-02 12:12] LABS: Allen Test Pos (Pos)
[2023-10-02] MEDS ORDERED: FAMOTIDINE 200 MG/20 ML VIAL IV STA (12:12)
--- NOTE | 2023-10-02 12:12 | CT Scan Report ---
ABDOMEN AND PELVIS CT WITHOUT CONTRAST CT DOSE: 919.63 mGy.cm HISTORY: renal failure, diarrhea TECHNIQUE: Multiaxial CT images of the abdomen and pelvis were performed without contrast. A dose lo wering technique was utilized adhering to the principles of ALARA. COMPARISON STUDY: None. FINDINGS: There is a small fat-containing right-sided Bochdalek hernia. Otherwise, lung bases are jarrod ar. No acute fractures identified. The unenhanced liver, gallbladder, spleen, adrenal glands, and cummings creas unremarkable. Mild to moderate calcified plaque within the normal caliber abdominal aorta. No r etroperitoneal or pelvic lymphadenopathy. No pelvic free fluid. Bilateral perinephric edema/fat stran ding most pronounced on the left. There is a 4 mm stone within the right kidney. No ureteral stones. No hydronephrosis. There are small left peripelvic renal cysts. There are a few hypodense lesions wit hin the left kidney the largest measuring 1.7 cm. These are incompletely characterized on this noncon trast study but favor cysts. The kidneys appear mildly enlarged. There is a 4 cm lipoma within the le ft lateral abdominal wall musculature. Prior mesh repair of an umbilical hernia is noted. The bladder is completely decompressed by Schwartz catheter. The prostate gland is mildly enlarged. Suboptimal eval uation for bowel pathology due to the lack of intravenous and oral contrast. However, there is no def inite bowel wall thickening or obstruction. A few colonic diverticula. No evidence for acute divertic ulitis. Normal appendix. Fluid-filled nondilated loops of large and small bowel. This may represent a mild gastroenteritis/diarrheal illness. Evidence for prior mesh repair of a left inguinal hernia. IMPRESSION: 1. No bowel wall thickening or obstruction. 2. Fluid-filled nondilated loops of large and small bowel seen throughout the abdomen. This may repre sent a gastroenteritis/diarrheal illness. 3. Right-sided nephrolithiasis. No ureteral stones. No hydronephrosis. 4. Mild bilateral perinephric edema/fat stranding most pronounced on the left. The kidneys appear sli ghtly enlarged. This could be due to acute on chronic renal insufficiency or possibly a pyelonephriti s. Recommend correlation with urinalysis. 5. Additional findings as described above. ACT 112: Negative or not required by law. Electronically signed by: Zack Dasilva M.D. 10/02/2023 12:09 PM
[2023-10-02 12:31] LABS: Base Excess ABG -15.6 mEq/L (-9-1.8); HCO3 ABG 10 mmol/L (19-24); Oxygen Saturation ABG 98.7 % (90-95); PCO2 ABG 24 mmHg (35-46); PO2 ABG 121 mmHg (80-95); pH ABG 7.23 (7.35-7.45)
[2023-10-02] MEDS: FAMOTIDINE 20MG/5ML IV PUSH IV STA (12:32)
[2023-10-02 12:38] LABS: BUN Creatinine Ratio 12.1 (10-20); Calcium 7.1 mg/dl (8.6-10.3); Creatinine Clr Calc Pharmacy 8.9 ml/min; Est GFR (African American) 7.4 ml/min; Est GFR (Non-African American) 6.4 ml/min; Magnesium 2.2 mg/dl (1.7-2.4); Potassium 4.3 mmol/L (3.5-5.1)
[2023-10-02] MEDS: PLASMA-LYTE A 1,000 ML IV SCH (12:59)
[2023-10-02 13:03] LABS: Appearance Urine Cloudy (Clear); Bacteria Urine Automated Negative (Negative); Bilirubin Urine Negative (Negative); Blood Urine 3+ (Negative); Color Urine Yellow; Epithelial Cell Urine Auto >30 /lpf (0-5); Glucose Urine UA Negative (Negative); Ketones Urine Negative (Negative); Leukocyte Esterase Urine Negative (Negative); Nitrite Urine Negative (Negative); Protein Urine 2+ (Negative); RBC Urine Automated >30 /hpf (0-4); Specific Gravity Urine 1.009 (1.000-1.030); Urobilinogen Urine Negative (Negative)
[2023-10-02] MEDS ORDERED: ONDANSETRON INJ 2 MG/ML 2 ML VIAL IV PRN (13:18)
[2023-10-02 13:21] LABS: Cast Urine Automated 0 /lpf (0-5); Mucus Urine Present (None Prsent)
[2023-10-02 13:23] LABS: Renal Epithelial Cells Urine 0-5 /lpf (0-5)
--- NOTE | 2023-10-02 14:42 | Nephrology Consultation ---
Date of Consultation October 02, 2023 Assessment & Plan (1) Acute renal failure: (2) Acute dehydration: (3) High anion gap metabolic acidosis: (4) Hyponatremia: (5) Nausea and vomiting: (6) Diarrhea: Plan 63-year-old gentleman with baseline normal renal function, baseline creatinine as recent as in May was 0.5-0.6 mg/dl. Presented to ER with diarrheal illness for few days and noted to have RUBY, decreased urine output and electrolyte abnormality. Urinalysis showed proteinuria and microscopic hematuria however the sample was taken after Hughes catheter placement. CT abdomen pelvis was negative for postrenal obstruction, concern for possible perinephric stranding suggestive of pyelonephritis. Initially blood pressure was low which slightly improved with 2 L of IV fluid boluses. Initial labs showed creatinine 8.9 mg/dl and repeat lab showed creatinine slig htly decreased to 8.0 mg/dl Blood pressure improved. Acute kidney injury most likely prerenal versus ATN with significant volume depletion and diarrheal illness for few days, hypotension. Although urinalysis showed some proteinuria and microscopic hematuria, sample was taken after Hughes catheter placement. Creatinine slightly improved however sodium and bicarb remains low. --Recommend changing IV fluid to bicarb drip at 100 ml/h --Continue to monitor renal function electrolyte with hemodynamic support. If no further improvement in renal function, will repeat urinalysis and if proteinuria and hematuria persist, will consider further workup. --Agree with holding all antihypertensive medications including lisinopril and hydrochlorothiazide -- Monitor intake and output, renal function and electrolyte for recovery Thank you for allowing me to participate in your patient's care. It was a pleasure to see Nick. History of Present Illness Reason for Consultation: RUBY, metabolic acidosis, hyponatremia History of Present Illness Mr. Rogelio Emanuel is a 63 year old male with PMH significant for HTN, hyperlipidemia admitted with RUBY,electrolyte abnormalities, falls, gastroenteritis. Nephrology consult requested for management of above. EMR records were reviewed during visit. Daughter and son-in-law was at bedside during the visit. Nick presented to ER on 10/02/23 with c/o nausea, vomiting, diarrhea, chest discomfort, and multiple falls which started about 4 days ago. He reports not being able to keep anything down since then although he tried to keep up with fluid intake and reports he did not have much urine output since Sunday. He has been taking Lisinopril/HCTZ. He reports taking ibuprofen 3-4 times a day whenever he starts having pain in his left hip which has been bothering him over last few months. On arrival he was hypotensive, BP 70/41,HR of 101, but otherwise stable. Labs showed Cr of 8.9 (b/l cr 0.5 to 0.6, 06/09/23) 0.60), BUN of 99, AG of 26 with bicarb of 12, chloride of 89, sodium of 127, mag of 2.5, lactate WNL, covid 19/influenza/RSV negative. Chest xray unremarkable. Given 2L NSS bolus on arrival with improvement in BP to 137/80. Prior to admission a hughes catheter was placed in the ED. A CT A/P without contrast showed gastroenteritis, Right-sided nephrolithiasis, no hydronephrosis but noted mild b/l perinephric concerning for possible pyelonephritis. UA with proteinuria, microscopic hematuria but no bacteria. Non smoker. No known family history of CKD, ESKD. He denies any recent change in weight, any new skin rash, arthralgia, gross hematuria or lower extremity edema. Has h/o HTN , was on Lisinopril/HCTZ. No h/o CAD. Creatinine slightly improved to 1.1 on repeat lab. Overall he reports feeling slightly better. Has Hughes catheter in place with decent urine output. Currently on Plasma-Lyte at 100 mL/h. Allergies Allergy/AdvReac Type Severity Reaction Status Date / Time No Known Allergies Allergy Verified 10/01/23 06:55 Home Medications Medication Instructions Recorded Confirmed Type atorvastatin 80 mg tablet 80 mg PO HS #90 tabs 06/12/23 10/02/23 Rx lisinopril 20 1 tab PO BID #180 tabs 06/12/23 10/02/23 Rx mg-hydrochlorothiazide 25 mg tablet ondansetron HCl 8 mg tablet 8 mg PO Q8H PRN nausea and 10/01/23 10/02/23 Rx vomiting #20 tabs Patient History Medical History [place] (hard of hearing) Hyperlipidemia HTN (hypertension) Surgical History (Updated 06/12/23 @ 21:21 by Alberto Ferguson MD) Hx of arthroscopy of right knee History of colonoscopy History of umbilical hernia repair History of knee surgery History of inguinal hernia repair Rx1, Lx1 Family History (Updated 06/12/23 @ 11:55 by Alberto Ferguson MD) Father Hypertension Prostate cancer Mother Heart disease Brother Healthy adult Other Colonic polyp Denies family history of Breast cancer Social History Smoking Status: Never smoker Tobacco Type: Smokeless Tobacco (Dip or Chew) packs per day: 1; Second Hand Exposure: No; Do You Dip or Chew Tobacco: Yes (1 can per day/advised npo); Hx Alcohol Use: Yes Alcohol type: beer Alcohol type Comment: December 2 8 oz beers per day. Hx Substance Use: No Preferred Language: Telugu Communication Ability: Effective Hearing Ability: Hard of Hearing Ordained Minister Required: No Beliefs That Will Affect Care: None marital status: Single Current Living Situation: Alone current occupational status: employed current occupation: [employer] (not a family business) Feels Safe at Home: Yes Dental Care, Regularly: Yes Physical Activity Frequency: Does not Exercise Seatbelt Use: always Sunscreen Use: No Assistive Devices: None Review of Systems Review of Systems: All systems reviewed & are unremarkable except as noted in Subjective Physical Exam Constitutional: WD/WN, vitals as above no acute distress Eyes: + anicteric sclerae ENMT: Mouth: + dry oral mucous membranes Neck: normal visual inspection Respiratory: no respiratory distress Auscultation: lungs clear to auscultation bilaterally Cardiovascular: Rate/Rhythm: regular rate and regular rhythm Heart Sounds: normal S1 and normal S2 Extremities: no edema Gastrointestinal (Abdomen): Inspection/Auscultation: abdomen normal to inspection Musculoskeletal: Extremities: extremities normal to inspection Neurologic: no focal motor deficits Psychiatric: Orientation: alert and oriented x 3 Affect: euthymic affect Results & Data Vital Signs (Past 12 Hours) Vital Signs Temp Pulse Pulse Resp BP BP Pulse Ox 10/02/23 13:55 86 10/02/23 13:45 88 18 111/55 L 95 10/02/23 12:45 89 24 137/68 98 10/02/23 12:00 80 20 109/59 L 99 10/02/23 11:30 85 16 144/71 H 99 10/02/23 11:15 78 18 137/80 95 10/02/23 10:15 70 18 81/51 L 96 10/02/23 10:09 72 18 78/50 L 95 10/02/23 09:57 77 10/02/23 09:55 74 16 73/45 L 96 10/02/23 09:40 35.5 C L 101 H 16 70/41 L O2 Del Method 10/02/23 13:55 10/02/23 13:45 Room Air 10/02/23 12:45 Room Air 10/02/23 12:00 Room Air 10/02/23 11:30 Room Air 10/02/23 11:15 Room Air 10/02/23 10:15 Room Air 10/02/23 10:09 Room Air 10/02/23 09:57 10/02/23 09:55 Room Air 10/02/23 09:40 PG Care Time/CCT Total # of Minutes Spent Total Time Spent with Patient: Total time spent is greater than 50% in coordination of care (as documented) at patient's floor/unit and/or counseling patient: Coding Level of Care Code 97205 IN/OBS CONSULT LVL 5,80M Diagnoses Acute renal failure N17.9 Acute dehydration E86.0 High anion gap metabolic acidosis E87.29 Hyponatremia E87.1 Nausea and vomiting R11.2 Diarrhea R19.7
[2023-10-02 16:50] LABS: Base Excess VBG -14.3 mEq/L; HCO3 VBG 13 mmol/L; Oxygen Saturation VBG < 60.0 %; PCO2 VBG 35 mmHg (38-50); PO2 VBG 27 mmHg; pH VBG 7.18 (7.36-7.41)
[2023-10-02 17:22] LABS: BUN Creatinine Ratio 13.8 (10-20); Calcium 7.4 mg/dl (8.6-10.3); Creatinine Clr Calc Pharmacy 9.6 ml/min; Est GFR (African American) 8.1 ml/min; Est GFR (Non-African American) 6.9 ml/min; Magnesium 2.3 mg/dl (1.7-2.4); Potassium 3.9 mmol/L (3.5-5.1)
[2023-10-02 20:24] LABS: Base Excess VBG -13.1 mEq/L; HCO3 VBG 13 mmol/L; Oxygen Saturation VBG 68.3 %; PCO2 VBG 29 mmHg (38-50); PO2 VBG 40 mmHg; pH VBG 7.25 (7.36-7.41)
[2023-10-02] MEDS: SODIUM BICARBONATE 8.4% 150 MEQ in WATER, STERILE 1,000 ML IV SCH (20:41)
[2023-10-02 20:49] LABS: BUN Creatinine Ratio 14.5 (10-20); Calcium 7.2 mg/dl (8.6-10.3); Creatinine Clr Calc Pharmacy 10.6 ml/min; Est GFR (African American) 9.1 ml/min; Est GFR (Non-African American) 7.9 ml/min
[2023-10-03 00:34] LABS: Base Excess VBG -10.7 mEq/L; HCO3 VBG 14 mmol/L; Oxygen Saturation VBG 72.8 %; PCO2 VBG 29 mmHg (38-50); PO2 VBG 45 mmHg
[2023-10-03 01:12] LABS: BUN Creatinine Ratio 15.9 (10-20); Calcium 7.1 mg/dl (8.6-10.3); Creatinine Clr Calc Pharmacy 11.1 ml/min; Est GFR (African American) 9.7 ml/min; Est GFR (Non-African American) 8.3 ml/min; Magnesium 2.2 mg/dl (1.7-2.4); Phosphorus 9.2 mg/dl (2.5-4.9); Potassium 3.9 mmol/L (3.5-5.1)
[2023-10-03 04:46] LABS: Base Excess VBG -6.2 mEq/L; HCO3 VBG 18 mmol/L; Oxygen Saturation VBG 82.6 %; PCO2 VBG 31 mmHg (38-50); PO2 VBG 47 mmHg; pH VBG 7.37 (7.36-7.41)
[2023-10-03 05:05] LABS: Basophils # (auto) 0.03 K/uL (0.00-0.20); Basophils % (auto) 0.4 %; Eosinophils # (auto) 0.02 K/uL (0.00-0.50); Eosinophils % (auto) 0.3 %; Hematocrit (blood only) 30.6 % (42.0-52.0); Immature Granulocytes # (auto) 0.02 K/uL (0.01-0.20); Immature Granulocytes % (auto) 0.3 %; Lymphocytes # (auto) 1.12 K/uL (1.20-3.40); Lymphocytes % (auto) 14.7 %; Mean Corpuscular Hemoglobin 30.1 pg (25.0-34.0); Mean Corpuscular Hgb Conc 35.9 g/dL (32.0-36.0); Mean Corpuscular Volume 83.6 fL (80.0-100.0); Mean Platelet Volume 8.3 fL (9.4-12.4); Monocytes # (auto) 0.98 K/uL (0.11-0.59); Monocytes % (auto) 12.9 %; Neutrophils # (auto) 5.43 K/uL (1.40-6.50); Neutrophils % (auto) 71.4 %; Platelet Count 192 K/uL (130-400); RDW Coefficient of Variation 13.2 % (11.5-14.5); RDW Standard Deviation 40.2 fL (36.4-46.3); Red Blood Count 3.66 M/uL (4.70-6.10)
[2023-10-03 05:12] LABS: BUN Creatinine Ratio 18.8 (10-20); Creatinine Clr Calc Pharmacy 13.1 ml/min; Est GFR (African American) 11.8 ml/min; Est GFR (Non-African American) 10.2 ml/min; Magnesium 2.2 mg/dl (1.7-2.4); Phosphorus 7.8 mg/dl (2.5-4.9); Potassium 3.6 mmol/L (3.5-5.1)
[2023-10-03] MEDS ORDERED: FAMOTIDINE 20 MG in SYRINGE 3 ML IV SCH (09:00)
[2023-10-03] MEDS ORDERED: FAMOTIDINE 200 MG/20 ML VIAL IV SCH (09:00)
[2023-10-03] MEDS: FAMOTIDINE 20 MG TAB PO SCH (09:11)
[2023-10-03] MEDS: ENOXAPARIN INJ 30 MG/0.3 ML SYR SQ SCH (09:11)
[2023-10-03] MEDS: NSS + 20MEQ KCL 20 MEQ/1,000 ML BAG IV SCH (09:12)
--- NOTE | 2023-10-03 10:04 | Nephrology Progress Note ---
Date of Service October 03, 2023 Assessment & Plan (1) Acute renal failure: (2) Acute dehydration: (3) High anion gap metabolic acidosis: (4) Hyponatremia: (5) Nausea and vomiting: (6) Diarrhea: Plan 63-year-old gentleman with baseline normal renal function, baseline creatinine as recent as in May was 0.5-0.6 mg/dl. Presented to ER with diarrheal illness for few days and noted to have RUBY, decreased urine output and electrolyte abnormality. Urinalysis showed proteinuria and microscopic hematuria however the sample was taken after Schwartz catheter placement. CT abdomen pelvis was negative for postrenal obstruction, concern for possible perinephric stranding suggestive of pyelonephritis. Initially blood pressure was low which slightly improved with 2 L of IV fluid boluses. Initial labs showed creatinine 8.9 mg/dl and repeat lab showed creatinine slightly decreased to 8.0 mg/dl Blood pressure improved. Acute kidney injury most likely prerenal with significant volume depletion and diarrheal illness for few days, hypotension. Although urinalysis showed some proteinuria and microscopic hematuria, sample was taken after Schwartz catheter placement. Creatinine slightly improved however sodium and bicarb remains low. Kidney function continues to improve, electrolyte abnormality improving. Bicarb remains low. --Encourage p.o. intake, if p.o. intake remains adequate, okay to discontinue IV fluids as diarrhea and vomiting completely resolved. --Expect kidney function to continue to improve, monitor renal function electrolyte Admission and Anticipated Discharge Date Admission Date: October 02, 2023 Subjective Nick was seen and evaluated this morning. Overall he is feeling much better, reports not feeling as weak and tired as he was on admission yesterday. Nausea, vomiting and diarrhea completely resolved. No fever or chills. Has been having decent urine output. Blood pressure staying relatively low but improved from prior. Kidney function continues to improve, electrolyte improving. Review of Systems Review of Systems: All systems reviewed & are unremarkable except as noted in Subjective Physical Exam Constitutional: WD/WN, vitals as above no acute distress Eyes: + anicteric sclerae Neck: normal visual inspection Respiratory: no respiratory distress Auscultation: lungs clear to auscultation bilaterally Cardiovascular: Rate/Rhythm: regular rate and regular rhythm Heart Sounds: normal S1 and normal S2 Extremities: no edema Musculoskeletal: Extremities: extremities normal to inspection Neurologic: no focal motor deficits Psychiatric: Orientation: alert and oriented x 3 Affect: euthymic affect Results & Data Vital Signs (Past 12 Hours) Vital Signs Temp Pulse Pulse Resp BP Pulse Ox O2 Del Method 10/03/23 07:39 36.5 C 63 18 101/57 L 98 Room Air 10/03/23 02:47 36.7 C 75 18 93/60 L 95 Room Air 10/03/23 00:44 78 10/02/23 22:35 36.7 C 71 18 108/66 96 Room Air PG Care Time/CCT Total # of Minutes Spent Total Time Spent with Patient: Total time spent is greater than 50% in coordination of care (as documented) at patient's floor/unit and/or counseling patient: Coding Level of Care Code 02146 SUB INP/OBS CARE 2/35MIN Diagnoses Acute renal failure N17.9 Acute dehydration E86.0 High anion gap metabolic acidosis E87.29 Hyponatremia E87.1 Nausea and vomiting R11.2 Diarrhea R19.7
--- NOTE | 2023-10-03 15:05 | Hospitalist Progress Note ---
Date of Service October 03, 2023 Assessment & Plan (1) Acute renal failure: Plan: -Admit to the PCU on tele -Currently hemodynamically stable and non-toxic appearing -Presented to the ED for ongoing nausea, vomiting, and non-bloody diarrhea since 09/28/23 -Patient reports that he has not voided since 09/28, denied having the urge to go or increased suprapubic pain since 09/28 -Noted to have a Cr of 8.86 (baseline is 0.6) and BUN of 99 -CT of the abd/pelvis wo con ordered prior to admission is negative for signs of obstruction, does note Mild bilateral perinephric edema/fat stranding which could represent pyelonephritis -Repeat BMP, mag, phos on admission show a slight improvement of Cr to 8.0, BUN of 97, sodium of 128, AG of 20, Bicarb of 10 -Will obtain UA shortly with urine sodium and osmolality -Suspect his elevated phos is due to volume contraction on arrival, will wait to treat while continuing IV fluids and will follow on repeat q4h labs -Suspect his renal failure is due to multiple etiologies including severe dehydration from gastroenteritis and continued Lisinopril-HCTZ use -Cannot rule out intrinsic etiology with continued lisinopril-HCTZ use and possible infection, UA is in process -Continue with hughes cath in place for now, monitor intake/output q6h -Will start maintenance Plasmalyte at 100 mL/hr x 2 bags for now and will follow up with urine output q6h -Nephrology consult placed -Avoid Nephrotoxic agents -Hold chemical DVT PPX for now, BL SCD's -Clear liquid diet -q4h BMP, mag, phos, VBG -AM CBC with diff (2) High anion gap metabolic acidosis: Plan: -Patient presented with an AG of 36, bicarb of 12 -Lactate was WNL at 1.5 -ABG ordered on admission shows a pH of 7.23 with pCO2 of 24 and pO2 of 121 which shows incomplete respiratory compensation -Alcohol level is negative, salicylate level in process, patient denies taking any recent aspirin, NSAID's, or non-pharmacologic substances at home -Repeat BMP, mag, phos, shows slight improvement in renal function with AG improving to 20 but bicarb down to 10 -Suspect the metabolic acidosis with incomplete respiratory compensation is being driven by his severe dehydration and uremia >Suspect the drop in his bicarb from 12 --> 10 is likely due to the 2L NSS given in the ED -He is clinically stable at this time -Will start Plasmalyte at 100 mL/hr x 2 bags on admission for ongoing hydration -Will monitor q4h VBG to ensure he continues to correct (3) Acute dehydration: Plan: -Patient appears significantly dehydrated on exam with labs consistent with his presentation -Suspect this is due to his gastroenteritis with continued use of his linopril- HCTZ -Continue IV hydration for now, will start clear liquid diet -Monitor volume status moving forward (4) Hyponatremia: Plan: -Initial sodium of 127 on arrival --> 128 after receiving 2L NSS in the ED -Suspect that his hyponatremia is being causing by significant dehydration and continued diuretic use -Will continue IV hydration at this time -Will obtain serum osmolality, urine sodium, urine osmolality for further evaluation -Monitor q4h BMP, mag, phos -Nephrology consult placed (5) Diarrhea: Plan: -Suspect a gastroenteritis at this time, cannot rule out C. diff with the ongoing episodes of diarrhea -Denies recent abx use -CT of the abd/pelvis wo con is negative for obstruction with signs consistent with possible gastroenteritis -Will obtain stool studies and C. diff PCR but will hold abx for now as he has a mild leukocytosis on arrival and has been stable since initial fluid resuscitation in the ED -Will hold antidiarrheals for now until stool study results are back (6) Nausea and vomiting: Plan: -Suspect this is due to his gastroenteritis and possible gastritis/esophagitis -CT of the abd/pelvis wo con is negative for obstruction -Will give 20 mg IV famotidine now and continue daily until he can tolerate consistent PO Intake -Will order prn zofran for nausea/vomiting (7) Hypertension: Plan: -Presented in hypotension with systolic BP in the 70's -Has been stable since fluid resuscitation in the ED -Hold antihypertensives with stable BP and current renal failure Plan The patient was discussed with Dr. Watkins at the time of the admission Admission and Anticipated Discharge Date Admission Date: October 02, 2023 Subjective Alert and oriented. No complaints. Creatinine has improved to 5.4. Sodium improved to 131. Diet has been advanced. Will continue IV fluids with potassium. Urine culture is pending. Hopefully he can go home soon Review of Systems Review of Systems: Constitutional-no fever or chills ENT-no blurred vision, no double vision, no sore throat Respiratory-no cough, no wheezing, no shortness of breath Cardiac-no palpitations, no chest pain, no syncope GI-no nausea, vomiting, diarrhea, melena, hematochezia -Hughes catheter in place. No hematuria Musculoskeletal-no joint pain, no muscle tenderness Skin-no bruising, no rashes, no pruritus Neuro-no isolated weakness, no paresthesia Psych-no depression, no anxiety Physical Exam Physical Exam: General-alert and oriented x3, no fever, no chills HEENT-head atraumatic and normocephalic, pupils equal and reactive to light, extraocular muscles intact Neck-no lymphadenopathy or thyromegaly, trachea midline Chest-clear to auscultation percussion. No rales wheezing or rhonchi Cardiac-regular rate and rhythm, normal S1 and S2, no murmurs Abdomen-normal bowel sounds, nontender, no hepatosplenomegaly Extremities-no cyanosis, clubbing, or edema Neuro-cranial nerves II through XII intact, motor and sensory function within normal limits, strength symmetrical 5/5, no focal deficits Psych-normal affect, normal mood Results & Data Results & Data Vital Signs (Past 12 Hours) Vital Signs Temp Pulse Resp BP Pulse Ox O2 Del Method 10/03/23 11:37 36.8 C 63 18 98/58 L 96 Room Air 10/03/23 07:39 36.5 C 63 18 101/57 L 98 Room Air PG Care Time/CCT Total # of Minutes Spent Total Time Spent with Patient: Total time spent is greater than 50% in coordination of care (as documented) at patient's floor/unit and/or counseling patient: Coding Level of Care Code 63482 SUB INP/OBS CARE 3/50MIN Diagnoses Acute renal failure N17.9 High anion gap metabolic acidosis E87.29 Acute dehydration E86.0 Hyponatremia E87.1 Diarrhea R19.7 Nausea and vomiting R11.2 Hypertension I10
[2023-10-04 07:19] LABS: Basophils # (auto) 0.02 K/uL (0.00-0.20); Basophils % (auto) 0.3 %; Eosinophils # (auto) 0.03 K/uL (0.00-0.50); Eosinophils % (auto) 0.4 %; Hematocrit (blood only) 32.9 % (42.0-52.0); Hemoglobin 11.5 g/dl (14.0-18.0); Immature Granulocytes # (auto) 0.03 K/uL (0.01-0.20); Immature Granulocytes % (auto) 0.4 %; Lymphocytes # (auto) 1.13 K/uL (1.20-3.40); Lymphocytes % (auto) 15.4 %; Mean Corpuscular Hemoglobin 29.9 pg (25.0-34.0); Mean Corpuscular Volume 85.7 fL (80.0-100.0); Mean Platelet Volume 8.3 fL (9.4-12.4); Monocytes # (auto) 1.01 K/uL (0.11-0.59); Monocytes % (auto) 13.8 %; Neutrophils # (auto) 5.11 K/uL (1.40-6.50); Neutrophils % (auto) 69.7 %; Platelet Count 198 K/uL (130-400); RDW Coefficient of Variation 13.2 % (11.5-14.5); RDW Standard Deviation 41.1 fL (36.4-46.3); Red Blood Count 3.84 M/uL (4.70-6.10); White Blood Count 7.33 K/ul (4.8-10.8)
[2023-10-04 07:37] LABS: Calcium 7.8 mg/dl (8.6-10.3); Est GFR (African American) 69.6 ml/min; Potassium 3.7 mmol/L (3.5-5.1)
[2023-10-04 09:10] LABS: Adenovirus F 40/41 PCR Not Detected (NotDetected); Astrovirus PCR Not Detected (NotDetected); Campylobacter PCR Not Detected (NotDetected); Cryptosporidium PCR Not Detected (NotDetected); Cyclospora cayetanensis PCR Not Detected (NotDetected); Entamoeba histolytica PCR Not Detected (NotDetected); Enteroaggregative E.coli(EAEC) Not Detected (NotDetected); Enteropathogenic E.coli (EPEC) Not Detected (NotDetected); Enterotoxigenic E.coli (ETEC) Not Detected (NotDetected); Giardia lamblia PCR Not Detected (NotDetected); Norovirus GI/GII PCR Not Detected (NotDetected); Plesiomonas shigelloides PCR Not Detected (NotDetected); Salmonella PCR Not Detected (NotDetected); Sapovirus PCR Not Detected (NotDetected); Shiga-like Toxin E.coli (STEC) Not Detected (NotDetected); Shigella/Enteroinvasive E.coli Not Detected (NotDetected); Vibrio cholerae PCR Not Detected (NotDetected); Vibrio species PCR Not Detected (NotDetected); Yersinia enterocolitica PCR Not Detected (NotDetected)
[2023-10-04 09:29] LABS: Rotavirus A PCR DETECTED (NotDetected)
--- NOTE | 2023-10-04 13:15 | Discharge Summary ---
Date of Service October 04, 2023 Admission HPI Per Admitting Provider Rogelio is a 63 year old male with a PMH significant for HTN, hyperlipidemia who presented to the [facility] ED on 10/02/23 with complaints of recurrent nausea, vomiting, diarrhea, chest discomfort, and multiple falls since 09/28/83. On arrival he was noted to be hypotensive at 70/41, tachycardic with HR of 101, but otherwise stable. Labs were significant for a leukocytosis of 11 with neutrophil predominance of 8, lymphocyte count of 1.15, Cr of 8.86 (baseline is near 0.60), BUN of 99, AG of 26 with bicarb of 12, chloride of 89, sodium of 127, mag of 2.5, lactate WNL, procal of 1.93, and covid 19/influenza/RSV negative. Chest xray was read as negative for acute findings. The patient was initially given 2L NSS bolus on arrival with improvement in his BP to 137/80. Prior to admission a hughes catheter was placed in the ED. A CT of the abd/pelvis wo con was obtained by the medicine team prior to admission and was read as "1. No bowel wall thickening or obstruction. 2. Fluid-filled nondilated loops of large and small bowel seen throughout the abdomen. This may represent a gastroenteritis/diarrheal illness. 3. Right-sided nephrolithiasis. No ureteral stones. No hydronephrosis. 4. Mild bilateral perinephric edema/fat stranding most pronounced on the left. The kidneys appear slightly enlarged. This could be due to acute on chronic renal insufficiency or possibly a pyelonephritis. Recommend correlation with urinalysis.5. Additional findings as described above. ". At the time of the exam the patient was sitting in bed in no acute distress with his daughter sitting bedside. He states that he started to develop nausea, non-bloody emesis, and multiple (more than 4 daily) episodes of non-bloody diarrhea starting on 09/28/23. When asked, he confirms that he continued to take his daily medications which includes lisinopril-HCTZ. He was seen at his PCP's office on 10/01 and was prescribed prn Zofran, which he has been using. He states that he has not voided on his own since 09/28/23, he denies feeling as though he has had to void since his decreased urine output started. He experienced two episodes of lightheadedness/dizziness since last night. These occurred while he was walking to his kitchen to get zofran. He denies losing consciousness or hitting his head during the falls and states that he has not had recurrence of the symptoms since arriving to the ED. He has had approximately 3 episodes of intermittent episodes of substernal chest pain. He denies radiation of the pain and denies recurrence of the pain since arrival to the ED. When asked, he denies taking any aspirin, Aleve, Motrin, Ibuprofen, tylneol, alcohol, or other substances prior to or since his symptoms started. He denies recent antibiotic use. He denies recent fever, chills, cough, hemoptysis, hematochezia, abd pain, dysuria, hematuria, melena, bloody stool, LE swelling. We discussed code status, he wishes to be a full code and would want his daughter to make medical decisions for him if he cannot make them himself. Please refer to Dr. Watkins's attestation for any changes to the treatment plan Principal Diagnosis Rotavirus enteritis, volume depletion, mild hyponatremia, high anion gap metabolic acidosis, acute kidney injury Discharge Exam General-alert and oriented x3, no fever, no chills HEENT-head atraumatic and normocephalic, pupils equal and reactive to light, extraocular muscles intact Neck-no lymphadenopathy or thyromegaly, trachea midline Chest-clear to auscultation percussion. No rales wheezing or rhonchi Cardiac-regular rate and rhythm, normal S1 and S2, no murmurs Abdomen-normal bowel sounds, nontender, no hepatosplenomegaly Extremities-no cyanosis, clubbing, or edema Neuro-cranial nerves II through XII intact, motor and sensory function within normal limits, strength symmetrical 5/5, no focal deficits Psych-normal affect, normal mood Discharge Data Allergies Allergy/AdvReac Type Severity Reaction Status Date / Time No Known Allergies Allergy Verified 10/01/23 06:55 Consultations 10/02/23 11:34 ED Decision to Admit Stat 10/02/23 12:28 Consult Nephrology Routine Ordered Studies 10/02/23 11:33 CT abd pelvis wo con Stat Hospital Course (1) Acute renal failure: Resolved with IV fluids. Creatinine 8.8 on admission and is now 1.2 with IV fluid resuscitation. Nephrology consultation and recommendations appreciated. He was previously on bicarbonate drip this hospitalization. Lisinopril can be restarted at discharge. Hydrochlorothiazide will be discontinued. (2) High anion gap metabolic acidosis: Treated and resolved with bicarbonate drip. Nephrology consultation and recommendations appreciated. (3) Acute dehydration: Present on admission. Resolved with fluid resuscitation. Will discontinue hydrochlorothiazide permanently (4) Hyponatremia: Mild on admission. Now resolved (5) Diarrhea: Rotavirus etiology. Now resolved (6) Nausea and vomiting: Present on admission. Now resolved. CT of the abd/pelvis wo con is negative for obstruction (7) Hypertension: Hypotensive on admission. Now resolved. Lisinopril will be restarted at discharge. Hydrochlorothiazide has been discontinued Plan Stable for discharge to home todayOctober 04 Total Time Total Time Spent Total Time Spent (In Minutes): 45-minute Discharge Plan Discharge Items Patient Disposition: Home - Self-Care Reason For Visit: NAUSEA,VOMITING,DIARRHEA,ACUTE RENAL FAILURE,METAB Discharge Diagnosis: Rotavirus enteritis, volume depletion, acute kidney injury, high anion gap metabolic acidosis, mild hyponatremia Activity: Resume your previous activity Non-emergency contact: Primary Care Provider Call non-emergency contact if: your symptoms worsen Follow-up/Referrals: Alberto Ferguson MD [Primary Care Provider] - Diet: Regular and Heart Healthy Addtl Attending Provider Instructions: Hydrochlorothiazide has been discontinued permanently. A new prescription for lisinopril only has been sent to your pharmacy Pending Studies at Discharge: No Stand-Alone Forms: My [facility], Smoking Cessation Medications and DC Order Prescriptions: New lisinopril 20 mg tablet 20 mg PO DAILY Qty: 30 0RF Continued atorvastatin 80 mg tablet 80 mg PO HS Qty: 90 3RF ondansetron HCl 8 mg tablet 8 mg PO Q8H PRN (Reason: nausea and vomiting) Qty: 20 0RF Discontinued lisinopril-hydrochlorothiazide 20-25 mg tablet 1 tab PO BID Qty: 180 3RF Rx Instructions: TAKE 1 TABLET BY MOUTH TWICE DAILY Discharge Orders: Discharge Order (Routine); Ordered 10/04/23 Ordered By: Laureano Villafana Admission Data Admit Date/Time: 10/02/23 12:57 Attending Provider: Broderick,Laureano R. Admit Provider: Nicola Watkins Primary Care Provider: Alberto Ferguson Other Providers: Nicola Watkins; Ellie Baez Coding Level of Care Code 23855 INP/OBS DISCH >30 MIN Diagnoses Acute renal failure N17.9 High anion gap metabolic acidosis E87.29 Acute dehydration E86.0 Hyponatremia E87.1 Diarrhea R19.7 Nausea and vomiting R11.2 Hypertension I10
--- NOTE | 2023-10-04 13:20 | Nephrology Progress Note ---
Date of Service October 04, 2023 Assessment & Plan (1) Acute renal failure: (2) Acute dehydration: (3) High anion gap metabolic acidosis: (4) Hyponatremia: (5) Nausea and vomiting: (6) Diarrhea: Plan 63-year-old gentleman with baseline normal renal function, baseline creatinine as recent as in May was 0.5-0.6 mg/dl. Presented to ER with diarrheal illness for few days and noted to have RUBY, decreased urine output and electrolyte abnormality. Urinalysis showed proteinuria and microscopic hematuria however the sample was taken after Schwartz catheter placement. CT abdomen pelvis was negative for postrenal obstruction, concern for possible perinephric stranding suggestive of pyelonephritis. Initially blood pressure was low which slightly improved with 2 L of IV fluid boluses. Initial labs showed creatinine 8.9 mg/dl and repeat lab showed creatinine slightly decreased to 8.0 mg/dl Blood pressure improved. Acute kidney injury most likely prerenal with significant volume depletion and diarrheal illness for few days, hypotension. Although urinalysis showed some proteinuria and microscopic hematuria, sample was taken after Schwartz catheter placement. Creatinine slightly improved however sodium and bicarb remains low. Kidney function continues to improve, creatinine down to 1.3, electrolyte abnormality resolved. --Encourage p.o. intake, okay to discontinue IV fluids. --Expect kidney function to continue to improve, monitor renal function elect [facility] Admission and Anticipated Discharge Date Admission Date: October 02, 2023 Subjective Nick was seen and evaluated this morning. Overall he is feeling much better, reports not feeling as weak and tired as he was on admission yesterday. Nausea, vomiting and diarrhea completely resolved. No fever or chills. Has been having decent urine output. Blood pressure improved. Kidney function continues to improve, electrolyte improving. Review of Systems Review of Systems: All systems reviewed & are unremarkable except as noted in Subjective Physical Exam Constitutional: WD/WN, vitals as above no acute distress Eyes: + anicteric sclerae ENMT: Mouth: + dry oral mucous membranes Neck: normal visual inspection Respiratory: no respiratory distress Auscultation: lungs clear to auscultation bilaterally Cardiovascular: Rate/Rhythm: regular rate and regular rhythm Heart Sounds: normal S1 and normal S2 Extremities: no edema Neurologic: no focal motor deficits Psychiatric: Orientation: alert and oriented x 3 Affect: euthymic affect Results & Data Vital Signs (Past 12 Hours) Vital Signs Temp Pulse Pulse Resp BP Pulse Ox O2 Del Method 10/04/23 11:29 36.7 C 55 L 18 111/61 97 Room Air 10/04/23 07:36 36.8 C 60 18 105/56 L 98 Room Air 10/04/23 02:47 37.1 C 62 17 111/58 L 96 Room Air 10/04/23 02:09 61 PG Care Time/CCT Total # of Minutes Spent Total Time Spent with Patient: Total time spent is greater than 50% in coordination of care (as documented) at patient's floor/unit and/or counseling patient: Coding Level of Care Code 23640 SUB INP/OBS CARE 2/35MIN Diagnoses Acute renal failure N17.9 Acute dehydration E86.0 High anion gap metabolic acidosis E87.29 Hyponatremia E87.1 Nausea and vomiting R11.2 Diarrhea R19.7
== END 2023-10-04 14:16 | disposition home or self-care (01) | DRG 683 ==
LOC: ED 09:29 → SUATTDRO 12:57 → EDINP 12:57 → 2S 15:22